=== PATIENT | male | born 1950 | race Caucasian/White ===

== ENCOUNTER 2016-11-28 07:14 | Day surgery (SDC) | payer OTHER ==
[~2016-11-28] VITALS: Ht 165.1 cm; Wt 51.6 kg
[2016-11-28] MEDS ORDERED: OMEPRAZOLE (07:30)
[2016-11-28 07:31] VITALS: Ht 165.1 cm; Wt 51.6 kg
[2016-11-28 08:08] VITALS: BP 137/71; PULSE 64; RESP 18
--- NOTE | 2016-11-28 09:35 | OPPN ---
Date/Time of Note Date/Time of Note DATE: 11/28/16 TIME: 09:33 Operative Report Preoperative Diagnosis Abdominal pain Screening Postoperative Diagnosis Gastritis with erosions 2 sigmoid polyps were removed Internal hemorrhoids Operation/Procedure Performed Esophagogastroduodenoscopy and biopsy Colonoscopy and polypectomy Surgeon see signature line directory assistance operator None Anesthesia: moderate sedation Estimated blood loss: none Transfusion Required none Specimen Gastric mucosal biopsy Colon polyps Grafts/Implants none Complications none ROMY FINN MD Nov 28, 2016 09:34
--- NOTE | 2016-11-28 09:35 | OPPN ---
Date/Time of Note Date/Time of Note DATE: 11/28/16 TIME: 09:33 Operative Report Preoperative Diagnosis Abdominal pain Screening Postoperative Diagnosis Gastritis with erosions 2 sigmoid polyps were removed Internal hemorrhoids Operation/Procedure Performed Esophagogastroduodenoscopy and biopsy Colonoscopy and polypectomy Surgeon see signature line promotions assistant sales marketing None Anesthesia: moderate sedation Estimated blood loss: none Transfusion Required none Specimen Gastric mucosal biopsy Colon polyps Grafts/Implants none Complications none ROMY IFNN MD Nov 28, 2016 09:34
--- NOTE | 2016-11-28 09:35 | OPPN ---
Date/Time of Note Date/Time of Note DATE: 11/28/16 TIME: 09:33 Operative Report Preoperative Diagnosis Abdominal pain Screening Postoperative Diagnosis Gastritis with erosions 2 sigmoid polyps were removed Internal hemorrhoids Operation/Procedure Performed Esophagogastroduodenoscopy and biopsy Colonoscopy and polypectomy Surgeon see signature line parking assistant None Anesthesia: moderate sedation Estimated blood loss: none Transfusion Required none Specimen Gastric mucosal biopsy Colon polyps Grafts/Implants none Complications none ROMY FINN MD Nov 28, 2016 09:34
[2016-11-28] MEDS ORDERED: MIDAZOLAM 1 MG/ML 2 ML INJ ONE ×3 (09:39)
[2016-11-28] MEDS ORDERED: FENTAnyl 50 MCG/ML VIAL ONE (09:39)
--- NOTE | 2016-11-28 11:35 | GILP ---
DATE OF PROCEDURE: NAME OF PROCEDURES: 1. Esophagogastroduodenoscopy and biopsy. 2. Colonoscopy, biopsy and polypectomy. SURGEON: Romy Corley MD PREOPERATIVE DIAGNOSES: 1. Abdominal pain. 2. Screening colonoscopy. POSTOPERATIVE DIAGNOSES 1. Gastritis with erosions. 2. Gastric mucosal biopsies were taken for Helicobacter pylori test. 3. Colonoscopy all the way to the cecum. 4. Two sigmoid colon polyps were removed using the biopsy forceps as well as snare and electrocaute ry. 5. Internal hemorrhoids. INDICATION FOR THE PROCEDURE: Mr. Colin Guerrero is a 66-year-old male patient who had upper abdom inal pain, not responding to therapy. He also needed screening colonoscopy. The procedures and possible complications were well explained to the patient, he understood and cons ented to the procedure. DESCRIPTION OF PROCEDURE: Under the influence of fentanyl and Versed, the gastroscope was carefully introduced into the esophagus and under direct vision, it was advanced to the stomach and through t he pylorus into the duodenal bulb and descending duodenum. FINDINGS: ESOPHAGUS: The mucosa was normal. STOMACH: Patient had gastritis with erosions. Gastric mucosal biopsies were taken for H. pylori te st. DUODENUM: Normal. The colonoscope was carefully introduced in the rectum and under direct vision it was advanced all t he way to the cecum. FINDINGS: The patient had 2 sigmoid colon polyps and one of them was removed using the biopsy force ps and the other one with the snare and electrocautery. The patient was noted to have internal hemo rrhoids. At the end of the procedures the patient tolerated the procedures very well and there was no complic ation from the procedures. At the end of the procedures, he was awake with stable vital signs and h e was discharged home to the care of his family. IMPRESSION: Please see postoperative diagnoses. PLAN: 1. Omeprazole 40 mg p.o. q.a.m. 2. Zantac 300 mg p.o. at bedtime. 3. Await histopathology reports. 4. Next screening colonoscopy in 5 years. Dictated By: ROMY BECERRIL/RUDDY Conf#: [id number] DID#: [id number]
== END 2016-11-28 11:31 | disposition home or self-care (01) ==
LOC: GIL 07:14
PROVIDERS: ATTEND Internal Medicine Gastroenterology
DX: Z12.11 Encounter for screening for malignant neoplasm of colon (principal); D12.5 Benign neoplasm of sigmoid colon; K64.8 Other hemorrhoids; K29.70 Gastritis, unspecified, without bleeding
CPT/HCPCS: 43239; 45380; 87081; 88305; J2250; J3010; Z7610